=== PATIENT | female | born 1975 | race Caucasian/White ===

== ENCOUNTER 2018-01-08 15:14 | Emergency (ER) | payer SELFPAY ==
[~2018-01-08] VITALS: Ht 167.6 cm; Wt 133.9 kg
[~2018-01-08 15:14] MED LIST: METO25TA35 PO; PARO10TA56 PO
[2018-01-08 15:16] VITALS: BP 135/93
[2018-01-08] MEDS ORDERED: metroNIDAZOLE 500 MG TABLET ONE (16:22)
[2018-01-08] MEDS ORDERED: DOXYCYCLINE 100MG TABLET ONE (16:22)
[2018-01-08] MEDS ORDERED: metroNIDAZOLE 500 MG TABLET PO ONE (16:30)
[2018-01-08] MEDS ORDERED: DOXYCYCLINE 100MG TABLET PO ONE (16:30)
[2018-01-08 16:44] LABS: MICROSCOPIC INDICATED
[2018-01-08 16:45] LABS: CULTURE INDICATED? YES
[2018-01-08 16:49] LABS: HCG UR SG 1.023 (1.003-1.030)
[2018-01-08 16:59] LABS: CLUE CELLS NONE SEEN (NONE SEEN); WET PREP WBCS MODERATE (FEW)
== END 2018-01-08 17:54 | disposition home or self-care (01) ==
LOC: ED 15:42
DX: N89.8 Other specified noninflammatory disorders of vagina (principal); A59.01 Trichomonal vulvovaginitis; A59.09 Other urogenital trichomoniasis; Z88.1 Allergy status to other antibiotic agents; Z88.6 Allergy status to analgesic agent
CPT/HCPCS: 81001; 81025; 87086; 87210; 87491; 87591; 87808; 99284

== ENCOUNTER 2018-03-20 07:47 | Emergency (ER) | payer OTHER ==
[~2018-03-20] VITALS: Ht 167.6 cm; Wt 130.3 kg
[2018-03-20 08:51] VITALS: BP 144/87
[2018-03-20 09:18] LABS: CLUE CELLS NONE SEEN (NONE SEEN); WET PREP WBCS FEW (FEW)
[2018-03-20] MEDS ORDERED: CEFTRIAXONE PMX 1GM/50ML 50 ML ONE (09:53)
[2018-03-20] MEDS ORDERED: CEFTRIAXONE 1,000 MG in SODIUM CHLORIDE 0.9% 50 ML IV ONE (10:00)
== END 2018-03-20 10:40 | disposition home or self-care (01) ==
LOC: ED 08:58
DX: L29.3 Anogenital pruritus, unspecified (principal); Z76.0 Encounter for issue of repeat prescription
CPT/HCPCS: 87210; 87808; 99284

== ENCOUNTER → 2018-10-18 | Outpatient (CLI) | payer OTHER | END | disposition home or self-care (01) | LOC: RAD 17:12 | PROVIDERS: ATTEND Family Medicine | DX: R07.89 Other chest pain (principal) | CPT/HCPCS: 71046 ==